=== PATIENT | female | born 1955 | race Caucasian/White ===

== ENCOUNTER 2021-05-21 16:15 | Inpatient (IN) | payer OTHER, SELFPAY ==
--- OUTSIDE RECORDS SUMMARY | 2021-05-21 16:18 | XMS REPORT | Continuity of Care Document ---
:1955 Author Organization [facility] t Address [address] [place] [address] Care Team Providers Name Role Phone Unavailable Unavailable Unavailable Problems Condition Condition Condition Status Onset Resolution Last Treating Co mments Source Name Details Category Date Date Treatment Clinician Date Hypertensi Hypertensi Diagnosis Active [facility] unspecifie unspecifie Me moria d type d type l [facility] Hypokalemi Hypokalemi Problem Active [facility] Memory Memory Problem Active [facility] loss loss [facility] Anxiety Anxiety Diagnosis [facility] Tobacco Tobacco Diagnosis Active [facility] use [facility] - disorder disorder [facility] Iron Iron Diagnosis Active [facility] deficiency deficiency [facility] - anemia, anemia, Memoria unspecifie unspecifie l d iron d iron [facility] deficiency deficiency en t anemia anemia Clinics type type Seasonal Seasonal Problem Active [facility] allergies allergies [facility] - [facility] Mixed Mixed Diagnosis Active [facility] hyperlipid hyperlipid [facility] - emia emia Memoria l [facility] Osteopenia Osteopenia Diagnosis Active [facility] , , [facility] - unspecifie unspecifie Me moria d location d location l [facility] Elevated Elevated Diagnosis Active [facility] LFTs LFTs [facility] Renal Renal Diagnosis Active [facility] insufficie insufficie [facility] - ncy ncy Memoria [facility] Screening Screening Diagnosis Active [facility] mammogram, mammogram, [facility] - encounter encounter Sagar fred for for l [facility] ent Clinics Well adult Well adult Diagnosis Active [facility] health [facility] - check check Memoria l [facility] Allergies, Adverse Reactions, Alerts Allergy Allergy Status Severity Reaction(s) Onset Inactive Treating Comm ents Source Name Type Date Date Clinician PCN Adverse Active Info Not [facility] Reaction Available [facility] Medications Ordered Filled Start Stop Current Ordering Indication Dosage Frequency Signature Comments Components Source Medication Medication Date Date Medication? Clinician (SIG) Name Name Mulu Hardwick Yes Ivan 1 tablet [facility] Crestor Crestor Yes Ivan [address] [facility]ics Iron Iron Yes Ivan [address] [facility] Klor-Con 10 Klor-Con 10 Yes Ivan [address] [facility] with food [facility] Zoloft Zoloft Yes Ivan 1 tablet [facility] Aspirin Aspirin Yes Ivan [address] [facility] Calcium + D Calcium + D Yes Ivan [address] [facility] Crestor [facility] Yes Ivan [address] [facility] Mulu Hardwick Yes Ivan 1 tablet [facility] Procedures This patient has no known procedures. Encounters Start End Encounter Admission Attending Care Care Encounter Source Date/Time Date/Time Type Type Clinicians Facility Department ID 2020-01-05 2020-01-05 [facility] [id number] [facility] 09:30:00 09:30:00 [employer] [facility] Medicine l Medicine Outpati ent Clinics 2019-09-07 2019-09-07 [facility] [id number] [address] 08:30:00 08:30:00 t [employer] [facility] Medicine l Medicine Outpati ent Clinics 2019-04-30 2019-04-30 [facility] [id number] [facility] 14:00:00 14:00:00 [employer] [facility] l Medicine Outpati ent Clinics 2019-04-07 2019-04-07 [facility] [id number] [address] 09:38:00 09:38:00 t [employer] [facility] 2018-07-24 2018-07-24 Outpatient [facility] [id number] [address] 10:45:00 10:45:00 [facility] - [facility] ent Clinics Results This patient has no known results.
[2021-05-21] MEDS ORDERED: ACETAMINOPHEN 500 MG TAB ONE (17:22)
[2021-05-21] MEDS ORDERED: NA CHLORIDE 0.9% 1,000 ML ONE (17:22)
[2021-05-21 17:28] LABS: Absolute Lymphocytes (CBC) 1.3 K/uL (0.7-4.9); Basophils % 0.8 % (0-1.3); Hematocrit 34.1 % (36.0-45.0); Lymphocytes % 15.4 % (15.3-44.8); MPV 7.9 fL (7.6-11.3); RBC Red Blood Cell Count 3.96 M/uL (3.86-4.86)
[2021-05-21] MEDS ORDERED: ONDANSETRON 4 MG/2 ML VIAL ONE (17:39)
[2021-05-21 17:47] LABS: Protime INR 1.14
[2021-05-21 17:59] LABS: BUN Blood Urea Nitrogen 13 mg/dL (7-18); Bicarbonate 32 mmol/L (21-32); Ferritin 1119.8 ng/mL (8-388); Glucose Level 98 mg/dL (74-106); NT PRO-BNP 214 pg/mL (<125); Potassium 3.5 mmol/L (3.5-5.1); Sodium Level 136 mmol/L (136-145); Troponin (Emerg Dept Use Only) < 0.02 ng/mL (0.0-0.045)
--- NOTE | 2021-05-21 18:18 | ER ---
Nurse's Notes [facility] Name: Brenda Arana Age: 65 yrs Sex: Female : 1955 Arrival Date: 05/21/2021 Time: 16:22 Bed 6 Private MD: Diagnosis: Pneumonia due to SARS-associated coronavirus;Hypoxemia Presentation: 05/21 16:37 Chief complaint: Patient states: SOB, cough, congestion, food tastes funny, not eating. ll1 + nausea. + tired, weak, fatigue. Family members have covid right now. Coronavirus screen: Client denies travel out of the [place] in the last 14 days. congestion, cough unrelated to allergies, difficulty breathing, fatigue, headache, muscle pain, nausea, loss of taste or smell, Client presents with at least one sign or symptom that may indicate coronavirus-19. Standard/surgical mask placed on the client. Ebola Screen: Patient denies travel to an Ebola-affected area in the 21 days before illness onset. Initial Sepsis Screen: Does the patient meet any 2 criteria? HR > 90 bpm. No. Patient's initial sepsis screen is negative. Does the patient have a suspected source of infection? Yes: Productive cough/pneumonia. Risk Assessment: Do you want to hurt yourself or someone else? Patient reports no desire to harm self or others. Onset of symptoms was May 14, 2021. 16:37 Method Of Arrival: Wheelchair ll1 16:37 Acuity: ARCHANA 2 ll1 Historical: - Allergies: 16:40 PENICILLINS; ll1 16:40 Latex, Natural Rubber; ll1 - PMHx: 16:40 High Cholesterol; Hypertension; ll1 - PSHx: 16:40 None; ll1 - Immunization history:: Client reports having NOT received the Covid vaccine. Flu vaccine is not up to date. - Social history:: Smoking status: Patient denies any tobacco usage or history of. - Family history:: not pertinent. - Hospitalizations: : No recent hospitalization is reported. Screenin:51 Abuse screen: Denies threats or abuse. Denies injuries from another. Nutritional ph screening: No deficits noted. Tuberculosis screening: No symptoms or risk factors identified. Fall Risk None identified. Assessment: 16:50 General: Appears in no apparent distress. Behavior is calm, cooperative, appropriate ph for age, Reports chills for fever for > 3 days. 16:50 Pain: Denies pain. Neuro: Level of Consciousness is awake, alert, obeys commands, ph Oriented to person, place, time, situation, Reports dizziness, weakness. Cardiovascular: Reports lightheadedness, nausea, shortness of breath, Capillary refill < 3 seconds in bilateral fingers Patient's skin is warm and dry. Respiratory: Airway is patent Respiratory effort is even, unlabored, Respiratory pattern is regular. GI: Reports nausea. Derm: Skin is intact, Skin is pink, warm \T\ dry. Musculoskeletal: Circulation, motion, and sensation intact. Range of motion: intact in all extremities. 18:23 Reassessment: Patient appears in no apparent distress at this time. Patient and/or ph family updated on plan of care and expected duration. Pain level reassessed. Patient is alert, oriented x 3, equal unlabored respirations, skin warm/dry/pink. 18:44 Cardiovascular: Rhythm is sinus rhythm. ph 05/22 19:40 Reassessment: Patient and/or family updated on plan of care and expected duration. Pain ea level reassessed. Patient is alert, oriented x 3, equal unlabored respirations, skin warm/dry/pink. Pt admitted to fourth floor. Report called to receiving nurse on fourth floor. Pt left ED via stretcher per tech. Pt tolerating well. Vital Signs: 05/21 16:37 BP 105 / 70; Pulse 97; Resp 20; Temp 102.1; Pulse Ox 90% ; Weight 65.32 kg; Height 5 ll1 ft. 6 in. (167.64 cm); Pain 5/10; 17:23 Pulse Ox 88% on R/A; ph 17:23 BP 137 / 84; Pulse 88; Resp 20; Pulse Ox 98% on 2 lpm NC; ph 18:39 BP 117 / 69; Pulse 76; Resp 16; Temp 99.0(O); Pulse Ox 97% on 2 lpm NC; ph 05/22 19:41 BP 128 / 81; Pulse 64; Resp 16; Pulse Ox 97% on 2 lpm NC; ea 05/21 16:37 Body Mass Index 23.24 (65.32 kg, 167.64 cm) ll1 ED Course: 05/21 16:22 Patient arrived in ED. ds1 16:25 Arm band placed on. ll1 16:40 Triage completed. ll1 16:43 Daniel Richardson PA is PHCP. [facility] 16:43 Jaime Salomon MD is Attending Physician. [facility] 16:48 Lucy Sánchez RN is Primary Nurse. ph 16:52 Patient has correct armband on for positive identification. Bed in low position. Call ph light in reach. Side rails up X 1. Pulse ox on. NIBP on. Door closed. Noise minimized. Warm blanket given. 17:23 Initial lab(s) drawn, by me. Inserted saline lock: 20 gauge in right antecubital area, ph using aseptic technique. Blood collected. 18:01 XRAY Chest (1 view) In Process Unspecified. EDMS 18:17 Isela Mcdonough MD is Hospitalizing Provider. rn 18:44 No provider procedures requiring assistance completed. Patient admitted, IV remains in ph place. 19:30 Primary Nurse role handed off by Lucy Sánchez RN mw2 Administered Medications: 17:22 Drug: Tylenol 1000 mg Route: PO; ph 18:44 Follow up: Response: No adverse reaction; Temperature is decreased ph 17:22 Drug: NS 0.9% 1000 ml Route: IV; Rate: 1000 ml; Site: right antecubital; ph 18:44 Follow up: Response: No adverse reaction; IV Status: Completed infusion; IV Intake: ph 1000ml 17:23 Drug: Zofran (Ondansetron) 4 mg Route: IVP; Site: right antecubital; ph 18:44 Follow up: Response: No adverse reaction; Nausea is decreased ph Intake: 18:44 IV: 1000ml; Total: 1000ml. ph Outcome: 18:17 Decision to Hospitalize by Provider. rn 05/22 02:43 Admitted to ER Hold. Please see [facility] for further documentation. ea Condition: stable Instructed on the need for admit, Demonstrated understanding of instructions. 19:42 Patient left the ED. ea Signatures: Dispatcher [employer] EDMS Daniel Richardson PA PA [facility] Nataliia Donato ds1 Jaime Salomon MD MD rn Hall, Patricia, RN RN Maria Antonia Silva RN RN Seymour Roque mw2 Anjana Muñoz RN RN 1 Corrections: (The following items were deleted from the chart) 05/21 16:42 16:37 BP 105 / 70; Pulse 97bpm; Resp 20bpm; Pulse Ox 92%; Temp 102.1F; 65.32 kg; Height ll1 5 ft. 6 in.; BMI: 23.2; Pain 5/10; ll1
--- NOTE | 2021-05-21 18:19 | EDPHYS ---
Physician Documentation [facility] Name: Brenda Arana Age: 65 yrs Sex: Female : 1955 Arrival Date: 05/21/2021 Time: 16:22 Bed 6 Private MD: ED Physician Jaime Salomon HPI: 05/21 17:15 This 65 yrs old Female presents to ER via Wheelchair with complaints of rn Breathing Difficulty. 17:15 The patient has shortness of breath at rest, with light activity. Onset: The rn symptoms/episode began/occurred 1 week(s) ago. Duration: The symptoms are continuous. The patient's shortness of breath is aggravated by coughing, exertion, light activity, talking, walking, is alleviated by rest. Associated signs and symptoms: Pertinent positives: non-productive cough, fever, Pertinent negatives: hemoptysis, loss of consciousness. Severity of symptoms: At their worst the symptoms were moderate in the emergency department the symptoms have improved. The patient has not experienced similar symptoms in the past. The patient has not recently seen a physician. Patient states multiple family members tested positive for Covid recently, some of them admitted to the hospital, now she has been ill for 1 week. Positive fever and chills and fatigue. Positive cough and mild shortness of breath. No chronic respiratory issues.. Historical: - Allergies: 16:40 PENICILLINS; ll1 16:40 Latex, Natural Rubber; ll1 - PMHx: 16:40 High Cholesterol; Hypertension; ll1 - PSHx: 16:40 None; ll1 - Immunization history:: Client reports having NOT received the Covid vaccine. Flu vaccine is not up to date. - Social history:: Smoking status: Patient denies any tobacco usage or history of. - Family history:: not pertinent. - Hospitalizations: : No recent hospitalization is reported. ROS: 17:15 Constitutional: Positive for fever and chills Eyes: Negative for injury, pain, redness, rn and discharge, ENT: Positive for loss of taste and smell. Neck: Negative for injury, pain, and swelling, Cardiovascular: Negative for chest pain, palpitations, and edema, Respiratory: Negative for wheezing, and pleuritic chest pain, Abdomen/GI: Negative for abdominal pain, nausea, vomiting, diarrhea, and constipation, Back: Negative for injury and pain, : Negative for injury, bleeding, discharge, and swelling, MS/Extremity: Negative for injury and deformity, Skin: Negative for injury, rash, and discoloration, Neuro: Negative for headache, numbness, tingling, and seizure. 17:15 All other systems are negative. Exam: 17:15 Constitutional: This is a well developed, well nourished patient who is awake, alert, rn and in no acute distress. 17:15 Head/Face: Normocephalic, atraumatic. Eyes: Pupils equal round and reactive to light, rn extra-ocular motions intact. ENT: Dry mucous membranes, no stridor Cardiovascular: Regular rate and rhythm. No pulse deficits. Respiratory: Mild tachypnea, diminished breath sounds bilateral bases Abdomen/GI: Soft, non-tender Skin: Warm, dry MS/ Extremity: Pulses equal, no cyanosis. Neuro: Awake and alert, GCS 15 Vital Signs: 16:37 BP 105 / 70; Pulse 97; Resp 20; Temp 102.1; Pulse Ox 90% ; Weight 65.32 kg; Height 5 ll1 ft. 6 in. (167.64 cm); Pain 5/10; 17:23 Pulse Ox 88% on R/A; ph 17:23 BP 137 / 84; Pulse 88; Resp 20; Pulse Ox 98% on 2 lpm NC; ph 18:39 BP 117 / 69; Pulse 76; Resp 16; Temp 99.0(O); Pulse Ox 97% on 2 lpm NC; ph 05/22 19:41 BP 128 / 81; Pulse 64; Resp 16; Pulse Ox 97% on 2 lpm NC; ea 05/21 16:37 Body Mass Index 23.24 (65.32 kg, 167.64 cm) ll1 MDM: 05/21 16:45 Patient medically screened. rn 18:14 Differential diagnosis: Anemia pneumonia, Pneumothorax pulmonary edema, Sepsis rn Pneumonia, Covid, flu. Data reviewed: vital signs, nurses notes, lab test result(s), radiologic studies, plain films, and as a result, I will admit patient. Counseling: I had a detailed discussion with the patient and/or guardian regarding: the historical points, exam findings, and any diagnostic results supporting the discharge/admit diagnosis, lab results, radiology results, the need for further work-up and treatment in the hospital. Response to treatment: the patient's symptoms have mildly improved after treatment, and as a result, I will admit patient. Admission orders: after a detailed discussion of the patient's condition and case, the admit orders are written by me. ED course: Patient with Covid pneumonia, ferritin greater than 1000, temperature 102 with O2 sat 89%. Will admit to Dr. Townsend for further care.. 05/21 16:50 Order name: BMP rn 05/21 16:50 Order name: Blood Culture Adult (2) rn 05/21 16:50 Order name: CBC with Diff; Complete Time: 18:13 rn 05/21 16:50 Order name: NT PRO-BNP; Complete Time: 18:13 rn 05/21 16:50 Order name: PT-INR; Complete Time: 18:13 rn 05/21 16:50 Order name: Ptt, Activated; Complete Time: 18:13 rn 05/21 16:50 Order name: Troponin (emerg Dept Use Only); Complete Time: 18:13 rn 05/21 16:50 Order name: Flu; Complete Time: 18:13 rn 05/21 16:50 Order name: CRP; Complete Time: 18:13 rn 05/21 16:50 Order name: Ferritin; Complete Time: 18:13 rn 05/21 16:51 Order name: Basic Metabolic Panel; Complete Time: 18:13 EDMS 05/21 18:28 Order name: SARS-COV-2 RT PCR; Complete Time: 19:50 EDMS 05/22 03:21 Order name: CBC with Automated Diff EDMT 05/21 16:50 Order name: IV Start; Complete Time: 18:23 rn 05/21 16:50 Order name: XRAY Chest (1 view); Complete Time: 19:50 rn 05/21 16:50 Order name: EKG; Complete Time: 16:51 rn 05/21 16:50 Order name: Cardiac monitoring; Complete Time: 18:23 rn 05/21 16:50 Order name: EKG - Nurse/Tech; Complete Time: 18:23 rn 05/21 16:50 Order name: Labs collected and sent; Complete Time: 17:22 rn 05/21 16:50 Order name: O2 Per Protocol; Complete Time: 17:22 rn 05/21 16:50 Order name: O2 Sat Monitoring; Complete Time: 17: rn 05/21 18:54 Order name: CONS Physician Consult [facility] 05/22 03:45 Order name: Lipid Profile [facility] 05/22 03:45 Order name: C-Reactive Protein [facility] 05/22 03:45 Order name: Ferritin [facility] 05/22 04:12 Order name: Manual Differential EDMT Administered Medications: 17:22 Drug: Tylenol 1000 mg Route: PO; ph 18:44 Follow up: Response: No adverse reaction; Temperature is decreased ph 17:22 Drug: NS 0.9% 1000 ml Route: IV; Rate: 1000 ml; Site: right antecubital; ph 18:44 Follow up: Response: No adverse reaction; IV Status: Completed infusion; IV Intake: ph 1000ml 17:23 Drug: Zofran (Ondansetron) 4 mg Route: IVP; Site: right antecubital; ph 18:44 Follow up: Response: No adverse reaction; Nausea is decreased ph Disposition Summary: 05/21/21 18:17 Hospitalization Ordered Hospitalization Status: Inpatient Admission rn Provider: Isela Mcdonough rn Condition: Stable rn Problem: new rn Symptoms: have improved rn Bed/Room Type: Standard rn Location: Telemetry/MedSurg (Inpatient)(05/22/21 18:42) bd Room Assignment: 411(05/22/21 18:42) bd Diagnosis - Pneumonia due to SARS-associated coronavirus rn - Hypoxemia rn Forms: - Medication Reconciliation Form rn - SBAR form rn Signatures: Dispatcher [employer] [facility] Paulina Mukherjee Martha RN Jaime Perez MD MD rn Roszak, Josh, PA PA [id number] Hall, Patricia, RN RN ph Lewis, Lynsay RN RN ll1 Corrections: (The following items were deleted from the chart) 17:16 17:15 Constitutional: Negative for fever, chills, and weight loss, Eyes: Negative for rn injury, pain, redness, and discharge, ENT: Positive for loss of taste and smell. Neck: Negative for injury, pain, and swelling, Cardiovascular: Negative for chest pain, palpitations, and edema, Respiratory: Negative for wheezing, and pleuritic chest pain, Abdomen/GI: Negative for abdominal pain, nausea, vomiting, diarrhea, and constipation, Back: Negative for injury and pain, : Negative for injury, bleeding, discharge, and swelling, MS/Extremity: Negative for injury and deformity, Skin: Negative for injury, rash, and discoloration, Neuro: Negative for headache, numbness, tingling, and seizure, rn 17:26 16:51 CORONAVIRUS+MR.LAB.BRZ ordered. EDMS EDMS 19:50 18:17 Telemetry/MedSurg (Inpatient) rn mw 19:50 18:17 rn vic 05/22 18:42 08 19:50 [facility] ER HOLD [facility] 05/22 18:42 05/21 19:50 ERHOLD- mw
--- NOTE | 2021-05-21 19:09 | RAD REPORT ---
EXAM DESCRIPTION: RAD - Chest Single View - 05/21/2021 6:02 pm CLINICAL HISTORY: Cough;Dyspnea Chest pain. COMPARISON: <Comparisons> FINDINGS: Portable technique limits examination quality. Prominent interstitial markings are noted likely related to viral pneumonitis/ bronchitis. The heart is normal in size. No displaced fractures.
--- NOTE | 2021-05-21 19:53 | P.HP ---
Certification for Inpatient Patient admitted to: Inpatient With expected LOS: >2 Midnights Patient will require the following post-hospital care: Home Health Services Practitioner: I am a practitioner with admitting privileges, knowledge of patient current condition, hospital course, and medical plan of care. Services: Services provided to patient in accordance with Admission requirements found in Title 42 Section 412.3 of the Code of Federal Regulations Patient History Date of Service: 05/21/21 Primary Care Provider: None Reason for admission: SARS pneumonia History of Present Illness: This is a 65-year-old female that states no medical problems that came in after being diagnosed with Covid approximately 2 weeks ago. Patient stated that she started with myalgias and has progressed to cough, shortness of breath, fever, loss of taste and smell. Patient came to the emergency room today for further evaluation as she became more short of breath at home. Patient was 89% on room air upon arrival to the emergency room. Patient was evaluated at that time and confirmed to have Covid pneumonia without any other significant findings. Patient was placed on 2 L nasal cannula and has been doing well since. Patient's labs revealed a white cell count 8.3, hemoglobin 11.8, hematocrit 34.1, platelet 227. Chemistry showed sodium of 136, potassium 3.5, chloride 99, bicarb 32, BUN 13, creatinine 0.88, glucose 98. Moderate elevation in her ferritin at 1119. Mild elevation of CRP at 43. Troponin and influenza were bot h negative. Allergies Penicillins Allergy (Unverified 03/19/17 16:18) Unknown Latex, Natural Rubb Allergy (Uncoded 03/19/17 16:18) Unknown Home medications list reviewed: Yes (Currently on no meds) - Past Medical/Surgical History Has patient received pneumonia vaccine in the past: No Diabetic: No - Social History Smoking Status: Never smoker Smoking therapy provided: No Alcohol use: No CD- Drugs: No Place of Residence: Home Review of Systems General: Fever Eyes: Unremarkable ENT: As per HPI Respiratory: As per HPI Cardiovascular: Unremarkable Gastrointestinal: Unremarkable Musculoskeletal: Unremarkable Integumentary: Unremarkable Neurological: Unremarkable Lymphatics: Unremarkable Physical Examination - Vital Signs Temperature: 102.1 F Blood Pressure: 105/70 Pulse: 97 Respirations: 20 Pulse Ox (%): 88 (Room air) - Physical Exam General: Alert, In no apparent distress, Oriented x3, Cooperative HEENT: Normocephalic, PERRLA, Mucous membr. moist/pink, EOMI Neck: Supple, 2+ carotid pulse no bruit, JVD not distended, No Thyromegaly Respiratory: Clear to auscultation bilaterally, Normal air movement Cardiovascular: No edema, Normal pulses, Regular rate/rhythm, Normal S1 S2, No gallops, No rubs, No murmurs Capillary refill: <2 Seconds Gastrointestinal: Normal bowel sounds, Soft and benign, Non-distended, No te nderness, No masses, No rebound, No guarding Musculoskeletal: No clubbing, No swelling, No contractures, No erythema, No tenderness, No warmth Integumentary: No rashes, No breakdown, No significant lesion, No tenderness/swelling, No erythema, No warmth, No cyanosis Neurological: Normal speech, Normal strength at 5/5 x4 extr, Normal tone, Sensation intact, Cranial nerves 3-12 intact, Normal affect Lymphatics: No axilla or inguinal lymphadenopathy - Studies Laboratory Data (last 24 hrs) 05/21/21 17:10: PT 13.1 H, INR 1.14, APTT 30.0 05/21/21 17:10: WBC 8.30, Hgb 11.8 L, Hct 34.1 L, Plt Count 227 05/21/21 17:10: Sodium 136, Potassium 3.5, BUN 13, Creatinine 0.88, Glucose 98 Microbiology Data (last 24 hrs): 05/21/21 17:02 Nasopharnyx Influenza Type A Antigen Screen - Final 05/21/21 17:02 Nasopharnyx Influenza Type B Antigen Screen - Final Assessment and Plan - Problems (Diagnosis) (1) SARS pneumonia Current Visit: Yes Status: Acute (2) Acute respiratory failure with hypoxia Current Visit: Yes Status: Acute (3) COVID-19 Current Visit: Yes Status: Acute - Plan 1. Patient will be monitored over the next 1 to 2 days for stability to ensure that she has no increase in respiratory compromise 2. Vital signs per protocol 3. Oxygen per protocol 4. Patient has been started on anticoagulation and vitamin regimen consistent with current best practice for COVID-19 5. We will check labs daily 6. Dr. Hernandez has been consulted for further recommendation for SARS related pneumonia 7. It is a hope that patient maintains on current oxygen level and can transition hopefully to home oxygen in the next 1 to 2 days Discharge Plan: Home Plan to discharge in: 48 Hours - Advance Directives Does patient have a Living Will: No Does patient have a Durable POA for Healthcare: No - Code Status/Comfort Care Code Status Assessed: Yes Code Status: Full Code Critical Care: No Time Spent Managing Pts Care (In Minutes): 70
[2021-05-21] MEDS ORDERED: ACETAMINOPHEN 325 MG TABLET PO PRN (20:56)
[2021-05-21] MEDS ORDERED: METHYLPREDNISOLONE 40 MG INJ IV SCH (21:00)
[2021-05-21] MEDS ORDERED: FAMOTIDINE 20 MG/2 ML VIAL IV SCH (21:00)
[2021-05-21] MEDS: APIXABAN 5 MG TABLET PO SCH (21:00)
[2021-05-21] MEDS: MELATONIN 5 MG TABLET PO SCH (21:00)
[2021-05-21] MEDS: ASCORBIC ACID 500 MG TABLET PO SCH (21:00)
[2021-05-21] MEDS ORDERED: APIXABAN 5 MG TABLET ONE (21:37)
[2021-05-21] MEDS ORDERED: FAMOTIDINE 20 MG/2 ML VIAL IV ONE (21:38)
[2021-05-21] MEDS ORDERED: METHYLPREDNISOLONE 40 MG INJ ONE (21:38)
[2021-05-21] MEDS ORDERED: MELATONIN 5 MG TABLET PO ONE (21:43)
[2021-05-21] MEDS ORDERED: ASCORBIC ACID 500 MG TABLET ONE (21:44)
[2021-05-22 02:46] VITALS: BMI 23.2
[2021-05-22 03:18] LABS: Absolute Lymphocytes (CBC) 0.7 K/uL (0.7-4.9); Basophils % 1.7 % (0-1.3); Hematocrit 31.9 % (36.0-45.0); Lymphocytes % 7.5 % (15.3-44.8); MPV 8.2 fL (7.6-11.3); RBC Red Blood Cell Count 3.72 M/uL (3.86-4.86)
[2021-05-22 03:45] LABS: C-Reactive Protein 47.3 mg/L (<3.00); Ferritin 1042.8 ng/mL (8-388)
[2021-05-22 04:12] LABS: Blood Morphology Comment NOT SEEN (NOT SEEN); Platelet Estimate ADEQ
--- NOTE | 2021-05-22 06:58 | P.PN ---
Subjective Date of Service: 05/22/21 Primary Care Provider: None Chief Complaint: SARS pneumonia Subjective: Improving, Doing well Physical Examination - Vital Signs Temperature: 102.1 F Blood Pressure: 105/70 Pulse: 97 Respirations: 20 Pulse Ox (%): 88 (Room air) - Studies Laboratory Data (last 24 hrs) 05/21/21 17:10: PT 13.1 H, INR 1.14, APTT 30.0 05/21/21 17:10: WBC 8.30, Hgb 11.8 L, Hct 34.1 L, Plt Count 227 05/21/21 17:10: Sodium 136, Potassium 3.5, BUN 13, Creatinine 0.88, Glucose 98 Microbiology Data (last 24 hrs): 05/21/21 17:02 Nasopharnyx Influenza Type A Antigen Screen - Final 05/21/21 17:02 Nasopharnyx Influenza Type B Antigen Screen - Final Assessment & Plan Discharge Plan: Home Physician Review Additional Text: COVID: Positive Chest x-ray: COMPARISON: <Comparisons> FINDINGS: Portable technique limits examination quality. Prominent interstitial markings are noted likely related to viral pneumonitis/ bronchitis. The heart is normal in size. No displaced fractures. Physical Exam: General: Alert, In no apparent distress, Oriented x3, Cooperative HEENT: Normocephalic, PERRLA, Mucous membr. moist/pink, EOMI Neck: Supple, 2+ carotid pulse no bruit, JVD not distended, No Thyromegaly Respiratory: Breathing improved. Patient on 3 L per nasal cannula. Cardiovascular: No edema, Normal pulses, Regular rate/rhythm, Normal S1 S2, No gallops, No rubs, No murmurs Capillary refill: <2 Seconds Gastrointestinal: Normal bowel sounds, Soft and benign, Non-distended, No tenderness, No masses, No rebound, No guarding Musculoskeletal: No clubbing, No swelling, No contractures, No erythema, No tenderness, No warmth Integumentary: No rashes, No breakdown, No significant lesion, No tenderness/swelling, No erythema, No warmth, No cyanosis Neurological: Normal speech, Normal strength at 5/5 x4 extr, Lymphatics: No axilla or inguinal lymphadenopathy Impression: Acute respiratory failure with hypoxia secondary to bilateral COVID-19 pneumonia, unvaccinated Plan: 1. Continue to monitor the patient closely. Continue IV steroids, supplementation. Provide DVT prophylaxisEliquis. 2. Vital signs per protocol 3. Oxygen per protocol. Respiratory to wean off oxygen. Patient will likely require home oxygen at discharge. 4. Patient has been started on anticoagulation and vitamin regimen consistent with current best practice for COVID-19 5. Will monitor CRP and ferritin closely. Will monitor electrolytes closely. Electrolyte protocol in place. 6. Pulmonology consulted. Await recommendations. Recheck chest x-ray tomorrow. 7. Anticipate home tomorrow if improved. Encourage incentive spirometer, proning. CODE STATUS: Full code DVT prophylaxis: Eliquoneal [facility] [id number] minutes: Home at discharge. Likely home oxygen at discharge. Time Spent Managing Pts Care (In Minutes): 55
[2021-05-22] MEDS ORDERED: BENZONATATE 100 MG CAP PO PRN (06:59)
[2021-05-22] MEDS: METHYLPREDNISOLONE 40 MG INJ IV SCH ×3 (09:00→21:14)
[2021-05-22] MEDS: ASPIRIN EC 81 MG TAB PO SCH (09:00)
[2021-05-22] MEDS: VITAMIN D 1000 UNIT TAB PO SCH (09:00)
[2021-05-22] MEDS: ZINC SULFATE 220 MG CAP PO SCH (09:00)
[2021-05-22] MEDS: ASCORBIC ACID 500 MG TABLET PO SCH ×2 (09:00→21:15)
[2021-05-22] MEDS: THIAMINE HCL 100 MG TABLET PO SCH ×2 (09:00→21:15)
[2021-05-22] MEDS: FAMOTIDINE 20 MG TAB PO SCH ×2 (09:00→21:15)
[2021-05-22] MEDS: APIXABAN 5 MG TABLET PO SCH ×2 (09:00→21:15)
--- NOTE | 2021-05-22 09:05 | EKG ---
Test Date: 2021-05-21 Test Time: 18:13:59 Stapler Hand: TAISHA MEASUREMENT RESULTS: Intervals: Rate: 80 MD: 176 QRSD: 82 QT: 386 QTc: 445 [place]: P: 48 MD: 176 QRS: 33 T: 58 INTERPRETIVE STATEMENTS: Normal sinus rhythm Nonspecific T wave abnormality Abnormal ECG No previous ECG available for comparison Electronically Signed On 05-22-21 09:03:56 CDT by Kevin Jensen
[2021-05-22] MEDS ORDERED: ZINC SULFATE 220 MG CAP ONE (10:05)
[2021-05-22] MEDS ORDERED: ASPIRIN EC 81 MG TAB PO ONE (10:06)
[2021-05-22] MEDS ORDERED: THIAMINE HCL 100 MG TABLET ONE (10:06)
[2021-05-22] MEDS ORDERED: VITAMIN D 1000 UNIT TAB ONE (10:06)
[2021-05-22] MEDS ORDERED: APIXABAN 5 MG TABLET ONE (10:06)
[2021-05-22] MEDS ORDERED: FAMOTIDINE 20 MG TAB ONE (10:07)
[2021-05-22] MEDS ORDERED: METHYLPREDNISOLONE 40 MG INJ ONE ×2 (10:07→18:34)
[2021-05-22] MEDS ORDERED: ASCORBIC ACID 500 MG TABLET ONE (10:07)
[2021-05-22] MEDS: MELATONIN 5 MG TABLET PO SCH (21:15)
[2021-05-23 04:29] LABS: Basophils % 0.1 % (0-1.3); Lymphocytes % 8.6 % (15.3-44.8); MPV 8.4 fL (7.6-11.3); RBC Red Blood Cell Count 3.82 M/uL (3.86-4.86)
[2021-05-23 05:10] LABS: Albumin 2.9 g/dL (3.4-5.0); Bilirubin Total 0.3 mg/dL (0.2-1.0); C-Reactive Protein 34.6 mg/L (<3.00); Ferritin 1346.5 ng/mL (8-388); Magnesium 2.4 mg/dL (1.8-2.4); Potassium 3.9 mmol/L (3.5-5.1); Protein, Total 7.2 g/dL (6.4-8.2)
--- NOTE | 2021-05-23 06:19 | P.PN ---
Subjective Date of Service: 05/23/21 Primary Care Provider: None Chief Complaint: SARS pneumonia Subjective: Improving, Doing well Physical Examination - Vital Signs Temperature: 97.5 F Blood Pressure: 139/80 Pulse: 60 Respirations: 19 Pulse Ox (%): 94 Assessment & Plan Discharge Plan: Home Plan to discharge in: 24 Hours Physician Review Additional Text: COVID: Positive Chest x-ray: COMPARISON: <Comparisons> FINDINGS: Portable technique limits examination quality. Prominent interstitial markings are noted likely related to viral pneumonitis/ bronchitis. The heart is normal in size. No displaced fractures. Physical Exam: General: Alert, In no apparent distress, Oriented x3, Cooperative HEENT: Normocephalic, PERRLA, Mucous membr. moist/pink, EOMI Neck: Supple, 2+ carotid pulse no bruit, JVD not distended, No Thyromegaly Respiratory: Breathing improved. Patient on 3.5 L per nasal cannula. Cardiovascular: No edema, Normal pulses, Regular rate/rhythm, Normal S1 S2, No gallops, No rubs, No murmurs Capillary refill: <2 Seconds Gastrointestinal: Normal bowel sounds, Soft and benign, Non-distended, No tenderness, No masses, No rebound, No guarding Musculoskeletal: No clubbing, No swelling, No contractures, No erythema, No tenderness, No warmth Integumentary: No rashes, No breakdown, No significant lesion, No tenderness/s welling, No erythema, No warmth, No cyanosis Neurological: Normal speech, Normal strength at 5/5 x4 extr, Lymphatics: No axilla or inguinal lymphadenopathy Impression: Acute respiratory failure with hypoxia secondary to bilateral COVID-19 pneumonia, unvaccinated Plan: 1. Continue to monitor the patient closely. Continue IV steroids, supplementation. Provide DVT prophylaxisEliquis. 2. Vital signs per protocol 3. Oxygen per protocol. Respiratory to wean off oxygen. Patient will likely require home oxygen at discharge. 4. Patient has been started on anticoagulation and vitamin regimen consistent with current best practice for COVID-19 5. Will monitor CRP and ferritin closely. Will monitor electrolytes closely. Electrolyte protocol in place. 6. Continue pulmonology recommendations 7. Anticipate home today if doing well with physical therapy. CODE STATUS: Full code DVT prophylaxis: Reynold [facility] [id number] minutes: Home at discharge. Likely home oxygen at discharge. Time Spent Managing Pts Care (In Minutes): 55
--- NOTE | 2021-05-23 07:30 | RAD REPORT ---
EXAM DESCRIPTION: RAD - Chest Single View - 05/23/2021 7:20 am CLINICAL HISTORY: Follow-up Covid COMPARISON: Chest Single View dated 05/21/2021 FINDINGS: Mild increased scattered bilateral airspace disease The heart size is within normal limits .No acute osseous abnormality. No significant pleural effusions or pneumothorax. IMPRESSION: Increased scattered bilateral airspace disease concerning for multifocal pneumonia, incl uding Covid-19.
[2021-05-23] MEDS: ASCORBIC ACID 500 MG TABLET PO SCH (08:56)
[2021-05-23] MEDS: VITAMIN D 1000 UNIT TAB PO SCH (08:56)
[2021-05-23] MEDS: APIXABAN 5 MG TABLET PO SCH (08:56)
[2021-05-23] MEDS: THIAMINE HCL 100 MG TABLET PO SCH (08:56)
[2021-05-23] MEDS: FAMOTIDINE 20 MG TAB PO SCH (08:56)
[2021-05-23] MEDS: ZINC SULFATE 220 MG CAP PO SCH (08:56)
[2021-05-23] MEDS: ASPIRIN EC 81 MG TAB PO SCH (08:56)
[2021-05-23] MEDS: METHYLPREDNISOLONE 40 MG INJ IV SCH ×2 (08:57→14:01)
[2021-05-23 12:44] VITALS: BP 139/80; TEMP 97.5
--- NOTE | 2021-05-23 12:49 | P.DS ---
Admission Date: 05/21/21 Discharge Date: 05/23/21 Primary Care Provider: None Disposition: ROUTINE DISCHARGE Discharge Condition: GOOD Reason for Admission: SARS pneumonia Consultations: Pulmonary-Dr. Hernandez Procedures: COVID: Positive Chest x-ray: COMPARISON: <Comparisons> FINDINGS: Portable technique limits examination quality. Prominent interstitial markings are noted likely related to viral pneumonitis/ bronchitis. The heart is normal in size. No displaced fractures. Follow up CXR: COMPARISON: Chest Single View dated 05/21/2021 FINDINGS: Mild increased scattered bilateral airspace disease The heart size is within normal limits.No acute osseous abnormality. No significant pleural effusions or pneumothorax. IMPRESSION: Increased scattered bilateral airspace disease concerning for multifocal pneumonia, including Covid-19. Medical problem list: Acute respiratory failure with hypoxia secondary to bilateral COVID-19 pneumonia, unvaccinated Brief History of Present Illness: 65-year-old female major medical problems diagnosed with COVID-19 2 weeks ago. Patient started to have myalgias, cough and shortness of breath. She also reported some lack of taste and smell. Patient arrived in the emergency room. Patient found to be hypoxic. Patient found to have COVID-19 pneumonia. Patient was admitted for treatment. Hospital Course: Patient presented with acute respiratory failure with hypoxia secondary to bilateral Covid pneumonia. Patient is unvaccinated. Patient was admitted for treatment. Patient diagnosed about 2 weeks ago. The patient was started on IV steroids, and supplementation. Her condition improved. The patient was seen and evaluated by pulmonology. No further intervention was required. Patient has been weaned down to 3.5 L per nasal cannula. Patient ambulating well. No significant shortness of breath noted. At discharge the patient will continue with home oxygen to maintain sats above 93%. Patient currently on 3.5 L. Patient may need to limit her activities at home. At discharge the patient will continue with prednisone 20 mg 1 pill twice daily for 7 days then 1 pill once daily for 7 days. The patient will continue with aspirin 81 mg daily. At discharge the patient will be provided Tessalon Perles 100 mg 3 times a day as needed for cough and albuterol 2 puffs 3 times a day as needed for shortness of breath. At discharge she will continue with vitamin supplementation including vitamin C 500 mg 1 pill 3 times a day, vitamin D 2000 units daily, zinc 220 mg daily, and thiamine 100 mg 1 pill twice daily. At discharge patient will continue with CDC guidelines on COVID-19 quarantine. Patient will continue with proning, ambulation, and incentive spirometer. Patient will also continue with facemask use, handwashing and social distancing. Education on COVID-19 provided. Recommend follow-up with pulmonology in 1 to 2 weeks to follow-up hospitalization. Recommend to follow-up with PCP to further monitor her care. Pulmonology will help patient wean off oxygen. Arrangements for home oxygen will be arranged prior to discharge. Vital Signs/Physical Exam: Temp Pulse Resp BP Pulse Ox 97.5 F 60 19 139/80 94 05/23/21 12:44 05/23/21 12:44 05/23/21 12:44 05/23/21 12:44 05/23/21 12:44 General: Alert, In no apparent distress, Oriented x3, Cooperative HEENT: Atraumatic Neck: Supple Respiratory: Clear to auscultation bilaterally, Normal air movement, Other (Currently on 3.5 liters. Patient ambulating appropriately.) Cardiovascular: Normal pulses, Regular rate/rhythm Gastrointestinal: Normal bowel sounds, No tenderness, No masses, No rebound, No guarding Musculoskeletal: No erythema, No tenderness, No warmth Integumentary: No tenderness/swelling Neurological: Normal speech, Normal strength at 5/5 x4 extr, Normal tone, Normal affect Laboratory Data at Discharge: WBC 11.80 K/uL (4.3-10.9) H D 05/23/21 04:00 Hgb 11.1 g/dL (12.0-15.0) L 05/23/21 04:00 Hct 33.0 % (36.0-45.0) L 05/23/21 04:00 Plt Count 270 K/uL (152-406) D 05/23/21 04:00 PT 13.1 SECONDS (9.5-12.5) H 05/21/21 17:10 INR 1.14 05/21/21 17:10 APTT 30.0 SECONDS (24.3-36.9) 05/21/21 17:10 Sodium 139 mmol/L (136-145) 05/23/21 04:00 Potassium 3.9 mmol/L (3.5-5.1) 05/23/21 04:00 BUN 20 mg/dL (7-18) H 05/23/21 04:00 Creatinine 0.72 mg/dL (0.55-1.3) 05/23/21 04:00 Glucose 160 mg/dL (74-106) H 05/23/21 04:00 Magnesium 2.4 mg/dL (1.8-2.4) 05/23/21 04:00 Total Bilirubin 0.3 mg/dL (0.2-1.0) 05/23/21 04:00 AST 81 U/L (15-37) H 05/23/21 04:00 ALT 61 U/L (12-78) 05/23/21 04:00 Alkaline Phosphatase 67 U/L (45-117) 05/23/21 04:00 Triglycerides 127 mg/dL (<150) 05/22/21 02:43 Cholesterol 112 mg/dL (<200) 05/22/21 02:43 HDL Cholesterol 37 mg/dL (40-60) L 05/22/21 02:43 Cholesterol/HDL Ratio 3.03 05/22/21 02:43 Home Medications: Albuterol Inhaler [Ventolin Inhaler*] 2 puff IH TID PRN #1 hfa.aer.ad 05/23/21 Ascorbic Acid [Vitamin C*] 500 mg PO TID #90 tablet 05/23/21 Aspirin [Aspirin EC 81 MG] 81 mg PO DAILY #30 tablet. 05/23/21 Benzonatate [Tessalon Perle*] 100 mg PO TID PRN #10 cap 05/23/21 Cholecalciferol (Vitamin D3) [Vitamin D 1000 Iu Tab*] 2,000 unit PO DAILY #60 tab 05/23/21 Famotidine [Pepcid*] 20 mg PO BID #60 tab 05/23/21 Thiamine HCl [Vitamin B-1*] 100 mg PO BID #60 tablet 05/23/21 Zinc Sulfate [Zinc Sulfate*] 220 mg PO DAILY #30 cap 05/23/21 predniSONE [Deltasone] 20 mg PO SEECOM #21 tab 05/23/21 New Medications: Aspirin [Aspirin EC 81 MG] 81 mg PO DAILY #30 tablet. Famotidine [Pepcid*] 20 mg PO BID #60 tab predniSONE [Deltasone] 20 mg PO SEECOM #21 tab Benzonatate [Tessalon Perle*] 100 mg PO TID PRN #10 cap PRN Reason: Cough Albuterol Inhaler [Ventolin Inhaler*] 2 puff IH TID PRN #1 hfa.aer.ad PRN Reason: Shortness Of Breath Thiamine HCl [Vitamin B-1*] 100 mg PO BID #60 tablet Ascorbic Acid [Vitamin C*] 500 mg PO TID #90 tablet Cholecalciferol (Vitamin D3) [Vitamin D 1000 Iu Tab*] 2,000 unit PO DAILY #60 tab Zinc Sulfate [Zinc Sulfate*] 220 mg PO DAILY #30 cap Physician Discharge Instructions: Patient presented with acute respiratory failure with hypoxia secondary to bilateral Covid pneumonia. Patient is unvaccinated. Patient was admitted for treatment. Patient diagnosed about 2 weeks ago. The patient was started on IV steroids, and supplementation. Her condition improved. The patient was seen and evaluated by pulmonology. No further intervention was required. Patient has been weaned down to 3.5 L per nasal cannula. Patient ambulating well. No significant shortness of breath noted. At discharge the patient will continue with home oxygen to maintain sats above 93%. Patient currently on 3.5 L. Patient may need to limit her activities at home. At discharge the patient will continue with prednisone 20 mg 1 pill twice daily for 7 days then 1 pill once daily for 7 days. The patient will continue with aspirin 81 mg daily. At discharge the patient will be provided Tessalon Perles 100 mg 3 times a day as needed for cough and albuterol 2 puffs 3 times a day as needed for shortness of breath. At discharge she will continue with vitamin supplementation including vitamin C 500 mg 1 pill 3 times a day, vitamin D 2000 units daily, zinc 220 mg daily, and thiamine 100 mg 1 pill twice daily. At discharge patient will continue with CDC guidelines on COVID-19 quarantine. Patient will continue with proning, ambulation, and incentive spirometer. Patient will also continue with facemask use, handwashing and social distancing. Education on COVID-19 provided. Recommend follow-up with pulmonology in 1 to 2 weeks to follow-up hospitalization. Recommend to follow-up with PCP to further monitor her care. Pulmonology will help patient wean off oxygen. Arrangements for home oxygen will be arranged prior to discharge. Diet: AHA Activity: Ad trang Followup: NONE,NONE [Primary Care Provider] - Time spent managing pt's care (in minutes): 55
[2021-05-23 12:59] VITALS: O2SAT 97
== END 2021-05-23 15:00 | disposition home or self-care (01) | DRG 177 ==
LOC: ER 16:15 → ERHOLD 18:53 → 4TH 05-22 19:20
PROVIDERS: ADMIT Hospitalist; ATTEND Hospitalist
DX: U07.1 COVID-19 (principal); J12.82 Pneumonia due to coronavirus disease 2019; J96.01 Acute respiratory failure with hypoxia; Z88.0 Allergy status to penicillin; Z91.040 Latex allergy status
CPT/HCPCS: 36415; 71045; 80048; 80053; 80061; 82728; 83735; 83880; 84484; 85025; 85610; 85730; 86140; 87040; 87077; 87186; 87205; 87804; 93005; 94760; 96361; 96374; 97116; 97161; 99285; J2405; J2920; J7030; U0003